=== PATIENT | male | born 1965 | race Caucasian/White ===

== ENCOUNTER 2016-08-20 11:51 | Emergency (ER) | payer OTHER ==
[~2016-08-20] VITALS: Ht 177.8 cm; Wt 100.0 kg
[~2016-08-20 11:51] MED LIST: BUSP5 PO; DIPH1TAB36 PO; FLUO20TA20 PO; LITH300 PO; LURA40 PO; NALT50 PO; QUET200 PO; TAMS0.4C67 PO
[2016-08-20 11:53] VITALS: BP 166/83; PULSE 86; RESP 14; TEMP 97.5; O2SAT 98
[2016-08-20] MEDS ORDERED: LIDOCAINE 1%/EPINEPHrine 1:100,000 SOLN 20 ML VIAL INFIL ONE (13:00)
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
--- NOTE | 2016-08-20 13:02 | PD ---
Physical Exam Date Seen by Provider: Aug 20, 2016 Narrative The PA asked me to see this patient with him regarding a laceration that is over 12 hours old Data Data Last Documented VS Vital Signs Date Time Temp Pulse Resp B/P Pulse Ox O2 Delivery O2 Flow Rate FiO2 08/20/16 11:53 97.5 86 14 166/83 98 Room Air MDM Supervised Visit with CYRUS: Yes Narrative Course I, Dr. Valentin, have reviewed the advance practice practitioner's documentation and am in agreement, met with the patient face to face, made the diagnosis, and the medical decision making was done by me. *My assessment and Findings: The patient has a laceration on the right forearm that is still bleeding briskly. I have advised the PA to go ahead and close the wound. I cleaned the slim since it has been bleeding continuously since the laceration occurred. Disposition: 01 DISCHARGE HOME Condition: Stable Gladis Valentin MD Aug 20, 2016 13:02
[2016-08-20] MEDS ORDERED: PROZ20CA11 PO (13:29)
[2016-08-20] MEDS ORDERED: LITH300T3 PO (13:29)
[2016-08-20] MEDS ORDERED: BUSP15TA PO (13:29)
[2016-08-20] MEDS ORDERED: SERO400T PO (13:29)
[2016-08-20] MEDS ORDERED: LITH300C2 PO (13:29)
[2016-08-20] MEDS ORDERED: LURA80 PO (13:29)
[2016-08-20] MEDS ORDERED: NALT50TA3 PO (13:29)
[2016-08-20] MEDS ORDERED: ALFU10TA3 PO (13:29)
[2016-08-20] MEDS ORDERED: CEPH500T PO (14:35)
== END 2016-08-20 15:23 | disposition home or self-care (01) ==
LOC: NEPB 11:51
DX: S51.811A Laceration without foreign body of right forearm, initial encounter (principal); F20.9 Schizophrenia, unspecified; F31.9 Bipolar disorder, unspecified; I10 Essential (primary) hypertension; E78.00 Pure hypercholesterolemia, unspecified; Z86.59 Personal history of other mental and behavioral disorders; Z87.19 Personal history of other diseases of the digestive system; Z86.69 Personal history of other diseases of the nervous system and sense organs; X78.8XXA Intentional self-harm by other sharp object, initial encounter
CPT/HCPCS: 12001; 96372; 99282; J0690

== ENCOUNTER 2016-09-29 11:12 | Inpatient (IN) | payer MEDICARE, OTHER ==
[~2016-09-29] VITALS: Ht 177.8 cm; Wt 94.6 kg
[~2016-09-29 11:12] MED LIST changes: +ALFU10TA3 PO; +BUSP15TA PO; -BUSP5 PO; +CEPH500T PO; -DIPH1TAB36 PO; -FLUO20TA20 PO; -LITH300 PO; +LITH300C2 PO; +LITH300T3 PO; -LURA40 PO; +LURA80 PO; -NALT50 PO; +NALT50TA3 PO; +PROZ20CA11 PO; -QUET200 PO; +SERO400T PO; -TAMS0.4C67 PO
[2016-09-29 11:29] VITALS: BP 140/87; PULSE 76; RESP 18; TEMP 98.3; O2SAT 98
[2016-09-29] MEDS ORDERED: VITATAB43 PO (11:38)
[2016-09-29] MEDS ORDERED: ANTI2TAB PO (11:38)
[2016-09-29 12:39] VITALS: RESP 18; O2SAT 99
[2016-09-29 13:15] LABS: AUTOMATED NEUTROPHIL # 4.3 TH/MM3 (1.8-7.7); BASOPHIL % 0.1 % (0.0-2.0); EOSINOPHIL % 0.5 % (0.0-4.0); HEMO FLAGS DIFF FINAL; LYMPH % 14.9 % (9.0-44.0); LYMPHOCYTE # 0.8 TH/MM3 (1.0-4.8); MEAN CELL VOLUME 87.8 FL (80.0-100.0); MEAN CORPUSCULAR HGB CONC 35.3 % (32.0-36.0); MONO % 7.9 % (0.0-8.0); NEUT % 76.6 % (16.0-70.0); PLATELET COUNT 161 TH/MM3 (150-450); RED BLOOD COUNT 4.67 MIL/MM3 (4.50-5.90); RED CELL DISTRIBUTION WIDTH 12.9 % (11.6-17.2); WHITE BLOOD COUNT 5.6 TH/MM3 (4.0-11.0)
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
[2016-09-29 13:20] LABS: AMPHETAMINE, URINE NEG (NEG); BARBITURATES, URINE NEG (NEG); COCAINE, URINE NEG (NEG)
[2016-09-29 13:28] LABS: ANION GAP 7 MEQ/L (5-15)
[2016-09-29 13:31] LABS: ALKALINE PHOSPHATASE 62 U/L (45-117); ALT (GPT) 15 U/L (12-78); AST (GOT) 14 U/L (15-37); BICARBONATE 26.7 MEQ/L (21.0-32.0); BLOOD UREA NITROGEN 12 MG/DL (7-18); CHLORIDE 106 MEQ/L (98-107); GLOMERULAR FILTRATION RATE 54 ML/MIN (>89); POTASSIUM 3.7 MEQ/L (3.5-5.1); SODIUM (NA) 140 MEQ/L (136-145); TOTAL BILIRUBIN ADULT 1.3 MG/DL (0.2-1.0)
[2016-09-29 16:20] LABS: BICARBONATE 26.1 MEQ/L (21.0-32.0); POTASSIUM 3.9 MEQ/L (3.5-5.1)
[2016-09-29 22:09] VITALS: BP 129/80; PULSE 75; RESP 18; O2SAT 97
[2016-09-29] MEDS ORDERED: diphenhydrAMINE HCL 50 MG CAP PO PRN (22:45)
[2016-09-29] MEDS ORDERED: BENZTROPINE MESYLATE 2 MG/2 ML VIAL IM PRN (22:45)
[2016-09-29] MEDS ORDERED: MAGNESIUM HYDROXIDE SUSP 30 ML CUP PO PRN (22:45)
[2016-09-29] MEDS ORDERED: diphenhydrAMINE HCL 50 MG/ML VIAL - HS PRN IM (22:45)
[2016-09-29] MEDS ORDERED: hydrOXYzine HCL 50 MG TAB PO PRN (22:45)
[2016-09-29] MEDS ORDERED: BENZTROPINE MESYLATE 1 MG TAB PO PRN (22:45)
[2016-09-29] MEDS ORDERED: LORazepam 1 MG TAB PO PRN (22:45)
[2016-09-29] MEDS ORDERED: LORazepam 2 MG/ML VIAL IM PRN (22:45)
[2016-09-29] MEDS ORDERED: diphenhydrAMINE HCL 50 MG CAP - HS PRN PO (22:45)
[2016-09-29] MEDS ORDERED: diphenhydrAMINE HCL 50 MG/ML VIAL IM PRN (22:45)
[2016-09-29] MEDS ORDERED: ALUMINUM/MAGNESIUM/SIMETH 30 ML CUP PO PRN (22:45)
[2016-09-29] MEDS ORDERED: LOPERAMIDE HCL 2 MG CAP PO PRN (23:00)
[2016-09-30 02:04] VITALS: BP 160/90; PULSE 59; RESP 18; TEMP 98.2; O2SAT 99
[2016-09-30 06:14] VITALS: BP 124/73; PULSE 62; RESP 16; TEMP 98; O2SAT 98
[2016-09-30 08:39] LABS: ANION GAP 6 MEQ/L (5-15); BICARBONATE 28.7 MEQ/L (21.0-32.0); BLOOD UREA NITROGEN 12 MG/DL (7-18); CHLORIDE 106 MEQ/L (98-107); GLOMERULAR FILTRATION RATE 58 ML/MIN (>89); LDL CHOLESTEROL 68 MG/DL (0-99); POTASSIUM 4.1 MEQ/L (3.5-5.1); SODIUM (NA) 141 MEQ/L (136-145)
[2016-09-30] MEDS ORDERED: LURASIDONE 40 MG TAB PO SCH (09:00)
[2016-09-30] MEDS: LITHIUM CARBONATE 300 MG CAP PO SCH (09:00)
[2016-09-30] MEDS: FOLIC ACID 1 MG TAB PO SCH (09:00)
[2016-09-30] MEDS: busPIRone HCL 10 MG TAB PO SCH ×2 (09:00→21:44)
[2016-09-30] MEDS: VITAMIN B COMPLEX/VIT C TAB PO SCH (09:00)
[2016-09-30] MEDS: FLUoxetine HCL 20 MG CAP PO SCH (09:00)
[2016-09-30] MEDS: NALTREXONE HCL 50 MG TAB PO SCH (09:00)
[2016-09-30] MEDS: NICOTINE 21 MG/24 HR PATCH T-DERMAL SCH (09:00)
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
[2016-09-30 16:05] LABS: HEMOGLOBIN A1b 0.8 %; HEMOGLOBIN Ao 88.1 %; HEMOGLOBIN F 0.6 %; HEMOGLOBIN LA1C 1.6 %
[2016-09-30] MEDS: ACETAMINOPHEN 325 MG TAB PO PRN (17:41)
[2016-09-30 18:28] VITALS: BP 135/78; PULSE 64; RESP 16; TEMP 97.6; O2SAT 99
--- NOTE | 2016-09-30 18:45 | EKG ---
Date Performed: 09/29/2016 Time Performed: 15:08:01 PTAGE: 51 years EKG: Sinus rhythm NONSPECIFIC T-WAVE ABNORMALITY BORDERLINE ECG PREVIOUS TRACING : 09/29/2016 12.25 DOCTOR: Mello Anderson Interpretating Date/Time 09/30/2016 18:40:09
--- NOTE | 2016-09-30 18:50 | EKG ---
Date Performed: 09/29/2016 Time Performed: 12:25:48 PTAGE: 51 years EKG: Sinus rhythm NONSPECIFIC T-WAVE ABNORMALITY BORDERLINE ECG PREVIOUS TRACING : 04/07/2016 12.56 DOCTOR: Mello Anderson Interpretating Date/Time 09/30/2016 18:44:33
[2016-09-30] MEDS: REMOVE OLD NICOTINE PATCH T-DERMAL SCH (21:00)
[2016-09-30] MEDS: ALFUZOSIN 10 MG PO SCH (21:00)
[2016-09-30] MEDS: LITHIUM CARBONATE 300 MG TAB PO SCH (21:44)
[2016-09-30] MEDS: QUEtiapine FUMARATE 200 MG TAB PO SCH (21:44)
[2016-10-01 06:17] VITALS: BP 107/59; PULSE 78; RESP 18; TEMP 98; O2SAT 98
[2016-10-01] MEDS: NICOTINE 21 MG/24 HR PATCH T-DERMAL SCH (09:00)
[2016-10-01] MEDS: NALTREXONE HCL 50 MG TAB PO SCH (09:00)
[2016-10-01] MEDS: LITHIUM CARBONATE 300 MG CAP PO SCH (09:00)
[2016-10-01] MEDS: VITAMIN B COMPLEX/VIT C TAB PO SCH (09:00)
[2016-10-01] MEDS: FOLIC ACID 1 MG TAB PO SCH (09:00)
[2016-10-01] MEDS: busPIRone HCL 10 MG TAB PO SCH ×2 (09:00→20:32)
[2016-10-01] MEDS: FLUoxetine HCL 20 MG CAP PO SCH (09:00)
--- NOTE | 2016-10-01 09:00 | HHI.PYPN ---
Subjective Remarks Patient was seen and discussed with the balance staff staker. Patient reported that he has been feeling better he slept better. He is planning to go visit his mom or stepmom in next week and and probably move out of the state and stay with them in [facility]. No behavior or management problem reported. Patient denied any suicidal ideation intentions or plan. He is compliant in taking medication and no side effects were complained. Advised to continue with the same treatment Review of Systems Except as stated in HPI: all other systems reviewed are Neg Psychiatric: COMPLAINS OF: Mood changes, Depression, Delusions Objective Alert: Yes [place]: Person, Place, Situation Mood: Depressed Affect: Restricted Memory Intact: Recent (mildly impaired) Hallucinations: Other (patient denies any active auditory or visual hallucinations at this time) Delusions: Yes Delusion Type: Paranoid Suicidal: Ideation (patient denied any suicidal ideation intentions or plan) Homicidal: Ideation (denies) Insight/Judgement Limited to fair Vitals/IOs Vital Signs Date Time Temp Pulse Resp B/P Pulse Ox O2 Delivery O2 Flow Rate FiO2 10/01/16 06:17 98.0 78 18 107/59 98 09/29/16 22:09 Room Air Assessment & Plan Problem List: (1) Bipolar disorder, most recent episode depressed ICD Code: F31.30 Assessment & Plan Estimated LOS: days Justification for Cont. Inpt. Monitoring of the medication and risk of decompensation Request HC Surrog/Guard Advoc?: Ang Conklin MD Oct 01, 2016 09:00
[2016-10-01] MEDS: QUEtiapine FUMARATE 200 MG TAB PO SCH ×2 (09:30→20:32)
[2016-10-01 19:53] VITALS: BP 97/63; PULSE 69; RESP 16; TEMP 98.2; O2SAT 97
[2016-10-01] MEDS: LITHIUM CARBONATE 300 MG TAB PO SCH (20:32)
[2016-10-01] MEDS: REMOVE OLD NICOTINE PATCH T-DERMAL SCH (20:32)
[2016-10-01] MEDS: ALFUZOSIN 10 MG PO SCH (20:33)
[2016-10-02 05:32] VITALS: BP 109/67; PULSE 67; RESP 18; TEMP 97.2; O2SAT 98
[2016-10-02] MEDS: NICOTINE 21 MG/24 HR PATCH T-DERMAL SCH (09:00)
[2016-10-02] MEDS: QUEtiapine FUMARATE 200 MG TAB PO SCH ×2 (09:07→20:52)
[2016-10-02] MEDS: FOLIC ACID 1 MG TAB PO SCH (09:07)
[2016-10-02] MEDS: busPIRone HCL 10 MG TAB PO SCH ×2 (09:08→20:53)
[2016-10-02] MEDS: FLUoxetine HCL 20 MG CAP PO SCH (09:08)
[2016-10-02] MEDS: NALTREXONE HCL 50 MG TAB PO SCH (09:08)
[2016-10-02] MEDS: VITAMIN B COMPLEX/VIT C TAB PO SCH (09:08)
[2016-10-02] MEDS: LITHIUM CARBONATE 300 MG CAP PO SCH (09:08)
--- NOTE | 2016-10-02 11:07 | HHI.PYPN ---
Subjective Remarks Patient was seen and discussed with the staff appraiser. Patient reported that he has been feeling fine he slept fairly well. No side effects were complained. No behavior or management problem reported. He is compliant in taking medication. Denied any suicidal ideation intentions or plan. He still planning to go and out of state to visit his family and stay there may be. Continue with the same treatment Review of Systems Except as stated in HPI: all other systems reviewed are Neg Psychiatric: COMPLAINS OF: Mood changes, Depression Objective Alert: Yes [place]: Person, Place, Situation Mood: Depressed Affect: Restricted Memory Intact: Recent (mildly impaired) Hallucinations: Other (patient denies any active auditory or visual hallucinations at this time) Delusions: Yes Delusion Type: Paranoid Suicidal: Ideation (patient denied any suicidal ideation intentions or plan) Homicidal: Ideation (denies) Insight/Judgement Fair Vitals/IOs Vital Signs Date Time Temp Pulse Resp B/P Pulse Ox O2 Delivery O2 Flow Rate FiO2 10/02/16 05:32 97.2 67 18 109/67 98 09/29/16 22:09 Room Air Assessment & Plan Problem List: (1) Bipolar disorder, most recent episode depressed ICD Code: F31.30 Assessment & Plan Estimated LOS: days Justification for Cont. Inpt. Fair to limited Request HC Surrog/Guard Advoc?: No Ang Han MD Oct 02, 2016 11:07
[2016-10-02 18:26] VITALS: BP 115/68; PULSE 66; RESP 18; TEMP 97.3; O2SAT 97
[2016-10-02] MEDS: LITHIUM CARBONATE 300 MG TAB PO SCH (20:52)
[2016-10-02] MEDS: ALFUZOSIN 10 MG PO SCH (21:00)
[2016-10-02] MEDS: REMOVE OLD NICOTINE PATCH T-DERMAL SCH (21:00)
[2016-10-02] MEDS: traZODone HCL 50 MG TAB PO PRN (21:47)
[2016-10-03 05:56] VITALS: BP 94/53; PULSE 68; RESP 16; TEMP 97.3; O2SAT 98
[2016-10-03] MEDS: VITAMIN B COMPLEX/VIT C TAB PO SCH (08:47)
[2016-10-03] MEDS: busPIRone HCL 10 MG TAB PO SCH ×3 (08:47→22:27)
[2016-10-03] MEDS: FOLIC ACID 1 MG TAB PO SCH (08:48)
[2016-10-03] MEDS: LITHIUM CARBONATE 300 MG CAP PO SCH (08:48)
[2016-10-03] MEDS: FLUoxetine HCL 20 MG CAP PO SCH (08:49)
[2016-10-03] MEDS: NALTREXONE HCL 50 MG TAB PO SCH (08:49)
[2016-10-03] MEDS: QUEtiapine FUMARATE 200 MG TAB PO SCH ×2 (08:49→21:00)
[2016-10-03] MEDS: NICOTINE 21 MG/24 HR PATCH T-DERMAL SCH (08:50)
--- NOTE | 2016-10-03 14:43 | HHI.PYPN ---
Subjective Remarks Patient was seen and case discussed with nursing. Patient is pleasant and cooperative with exam. He attributes the reason for his admission show not sleeping for 10 days. He said he had an irritable and depressed mood at the time. The poisonous plant he ate was an intentional act. He is bright and cheerful today. Mood has improved. Denies suicidal ideation intent or plan. Compliant with medications. He denies any flashback nightmares or hyperarousal Objective Alert: Yes [place]: Person, Place, Situation Mood: Depressed Affect: Blunted Memory Intact: Recent (mildly impaired) Hallucinations: Other (denies) Delusions: Yes Delusion Type: Paranoid (none) Suicidal: Ideation (patient denied any suicidal ideation intentions or plan) Homicidal: Ideation (denies) Insight/Judgement Poor Vitals/IOs Vital Signs Date Time Temp Pulse Resp B/P Pulse Ox O2 Delivery O2 Flow Rate FiO2 10/03/16 05:56 97.3 68 16 94/53 98 09/29/16 22:09 Room Air Assessment & Plan Problem List: (1) Bipolar disorder, most recent episode depressed ICD Code: F31.30 Assessment & Plan Continue current treatment plan Justification for Cont. Inpt. Patient will decompensate in a less restrictive setting Request HC Surrog/Guard Advoc?: No Jass De La Fuente DO Oct 03, 2016 14:42
[2016-10-03 18:00] VITALS: BP 127/73; PULSE 72; RESP 16; TEMP 98.1
[2016-10-03] MEDS: ACETAMINOPHEN 325 MG TAB PO PRN (18:07)
[2016-10-03] MEDS: LITHIUM CARBONATE 300 MG TAB PO SCH (21:00)
[2016-10-03] MEDS: ALFUZOSIN 10 MG PO SCH (21:00)
[2016-10-03] MEDS: REMOVE OLD NICOTINE PATCH T-DERMAL SCH (21:00)
[2016-10-04 06:24] VITALS: BP 102/64; PULSE 67; RESP 16; TEMP 98; O2SAT 100
[2016-10-04] MEDS: NALTREXONE HCL 50 MG TAB PO SCH (08:57)
[2016-10-04] MEDS: LITHIUM CARBONATE 300 MG CAP PO SCH (08:57)
[2016-10-04] MEDS: VITAMIN B COMPLEX/VIT C TAB PO SCH (08:57)
[2016-10-04] MEDS: FLUoxetine HCL 20 MG CAP PO SCH (08:58)
[2016-10-04] MEDS: QUEtiapine FUMARATE 200 MG TAB PO SCH ×2 (08:58→21:00)
[2016-10-04] MEDS: NICOTINE 21 MG/24 HR PATCH T-DERMAL SCH (08:58)
[2016-10-04] MEDS: FOLIC ACID 1 MG TAB PO SCH (08:58)
--- NOTE | 2016-10-04 13:58 | HHI.PYPN ---
Subjective Remarks Patient was seen and case discussed with nursing. Patient continues to improve. Is bright and pleasant during the interview. Logical and coherent. Sleeping and eating well. Spending his time reading. Denies psychotic symptoms. Objective Alert: Yes [place]: Person, Place, Date, Situation Mood: Calm Affect: Restricted Memory Intact: Recent (mildly impaired) Hallucinations: Other (denies) Delusions: Yes Delusion Type: Paranoid (none) Suicidal: Ideation (patient denied any suicidal ideation intentions or plan) Homicidal: Ideation (denies) Insight/Judgement Improving Vitals/IOs Vital Signs Date Time Temp Pulse Resp B/P Pulse Ox O2 Delivery O2 Flow Rate FiO2 10/04/16 06:24 98.0 67 16 102/64 100 Assessment & Plan Problem List: (1) Bipolar disorder, most recent episode depressed ICD Code: F31.30 Assessment & Plan Continue current treatment plan Justification for Cont. Inpt. Patient will decompensate in a less restrictive setting Request HC Surrog/Guard Advoc?: No Jass De La Fuente DO Oct 04, 2016 13:58
[2016-10-04 17:37] VITALS: BP 117/69; PULSE 69; RESP 18; TEMP 98.6; O2SAT 100
[2016-10-04 20:08] VITALS: BP 117/69; PULSE 69; RESP 16; TEMP 98.6; O2SAT 100
[2016-10-04] MEDS: ALFUZOSIN 10 MG PO SCH (21:00)
[2016-10-04] MEDS: REMOVE OLD NICOTINE PATCH T-DERMAL SCH (21:00)
[2016-10-04] MEDS: busPIRone HCL 10 MG TAB PO SCH (21:00)
[2016-10-04] MEDS: LITHIUM CARBONATE 300 MG TAB PO SCH (21:00)
[2016-10-04] MEDS: ACETAMINOPHEN 325 MG TAB PO PRN (21:47)
[2016-10-04] MEDS: traZODone HCL 50 MG TAB PO PRN (21:48)
[2016-10-05 05:56] VITALS: BP 105/69; PULSE 67; RESP 16; TEMP 98; O2SAT 97
[2016-10-05] MEDS: NALTREXONE HCL 50 MG TAB PO SCH (08:44)
[2016-10-05] MEDS: FLUoxetine HCL 20 MG CAP PO SCH (08:44)
[2016-10-05] MEDS: busPIRone HCL 10 MG TAB PO SCH ×2 (08:44→20:54)
[2016-10-05] MEDS: NICOTINE 21 MG/24 HR PATCH T-DERMAL SCH (08:45)
[2016-10-05] MEDS: VITAMIN B COMPLEX/VIT C TAB PO SCH (08:45)
[2016-10-05] MEDS: LITHIUM CARBONATE 300 MG CAP PO SCH (08:45)
[2016-10-05] MEDS: QUEtiapine FUMARATE 200 MG TAB PO SCH ×2 (08:45→20:54)
[2016-10-05] MEDS: FOLIC ACID 1 MG TAB PO SCH (08:45)
--- NOTE | 2016-10-05 13:47 | HHI.PYPN ---
Subjective Remarks I am assuming care of this patient from Dr. Han. Patient seen and examined with nurse, Virgil. Chart reviewed. Case discussed with nursing staff who reports patient has been no behavioral problem. On my examination today, the patient reports that he is in good spirits. He denies any suicidal or homicidal ideation. He says that he took the oleander prior to admission in an effort to get some sleep, although he admits that if he had as a result, he would not have been distressed at the time. He says that he is sleeping well now and feels generally much improved. He is pleased to be back on Seroquel instead of Latuda. He denies side effects from medications except some mild sedation from the morning dose of Seroquel, which is tolerable, and which he is not interested in changing. Continues to reside in a 3-tent system in [facility] and follows up psychiatrically at the [facility]. Review of Systems Other No physical complaints today Objective Alert: Yes [place]: Person, Place, Date, Situation Mood: Calm Affect: Other (full and reactive) Memory Intact: Comment (intact on clinical exam) Hallucinations: Other (No AVH) Delusions: No Delusion Type: Other (no delusional material) Suicidal: Ideation (denies suicidal ideation) Homicidal: Ideation (denies homicidal ideation) Insight/Judgement Fair Remarks Thought process linear. No motor abnormalities noted. Speech within normal limits for rate, tone and volume. Grooming and hygiene are good. Labs Labs reviewed. No new labs. Vitals/IOs Vital Signs Date Time Temp Pulse Resp B/P Pulse Ox O2 Delivery O2 Flow Rate FiO2 10/05/16 05:56 98.0 67 16 105/69 97 Assessment & Plan Problem List: (1) Bipolar disorder, most recent episode depressed ICD Code: F31.30 Assessment & Plan Patient is pleased with his current psychotropic regimen. Continue psychiatric medications as ordered. I will check a lithium level and a BMP in the morning. Continue other medications and care as ordered. Justification for Cont. Inpt. Monitoring for safety. No evidence of ongoing efforts at self-harm on the inpatient unit. Patient does have a lengthy history of previous self injury/ suicide attempts, and there is likely a fairly significant degree of chronic risk that will not be ameliorated by a lengthy inpatient psychiatric hospital stay. Discharge Planning Anticipate discharge within the next day or 2, and patient agrees that this is appropriate. Request HC Surrog/Guard Advoc?: No Josiah Ontiveros MD Oct 05, 2016 13:47
[2016-10-05 16:36] VITALS: BP 117/68; PULSE 71; RESP 18; TEMP 98.1; O2SAT 97
[2016-10-05] MEDS: REMOVE OLD NICOTINE PATCH T-DERMAL SCH (20:55)
[2016-10-05] MEDS: traZODone HCL 50 MG TAB PO PRN (20:55)
[2016-10-05] MEDS: LITHIUM CARBONATE 300 MG TAB PO SCH (20:55)
[2016-10-05] MEDS: ALFUZOSIN 10 MG PO SCH (21:00)
[2016-10-06 05:31] VITALS: BP 98/66; PULSE 69; RESP 16; TEMP 97.8; O2SAT 98
[2016-10-06 07:36] LABS: BICARBONATE 30.2 MEQ/L (21.0-32.0); POTASSIUM 4.3 MEQ/L (3.5-5.1)
[2016-10-06] MEDS: LITHIUM CARBONATE 300 MG CAP PO SCH (08:17)
[2016-10-06] MEDS: busPIRone HCL 10 MG TAB PO SCH (08:17)
[2016-10-06] MEDS: FOLIC ACID 1 MG TAB PO SCH (08:17)
[2016-10-06] MEDS: VITAMIN B COMPLEX/VIT C TAB PO SCH (08:17)
[2016-10-06] MEDS: NICOTINE 21 MG/24 HR PATCH T-DERMAL SCH (08:18)
[2016-10-06] MEDS: QUEtiapine FUMARATE 200 MG TAB PO SCH (08:18)
[2016-10-06] MEDS: FLUoxetine HCL 20 MG CAP PO SCH (08:18)
[2016-10-06] MEDS: NALTREXONE HCL 50 MG TAB PO SCH (08:18)
[2016-10-06] MEDS ORDERED: QUET1TAB9 PO (14:07)
[2016-10-06] MEDS ORDERED: TRAZ50TA12 PO (14:07)
--- NOTE | 2016-10-06 14:07 | HHI.DS ---
Psychiatry Discharge Summary Inpatient Psychiatric care?: Yes Advance Directive: Yes Mental Health AdvanceDirective: No (CT ) Health Care Proxy: No Admission Admission Date Sep 29, 2016 at 22:53 Admission Diagnosis: (1) Bipolar disorder, most recent episode depressed ICD Code: F31.30 Brief History This is a 51-year-old white male known to this facility for a long time. He comes back under the [place] act because he was not able to sleep for 10 days and his mind was racing and he ate some plan to just to help him sleep he also was frustrated and thought that he would kill himself but at the present time he denies any suicidal ideation intentions or plan. All he wants to do is to get some rest and not have his mind racing. Patient claimed that in the past Seroquel has helped him and is willing to take that. He is also willing to sign voluntary and cooperative with the treatment. No behavior or management problem reported. No side effects were complained. Patient has been hospitalized several times here his family history is positive for depression and some suicide attempt. 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 Tobacco Use In Past 30 Days: No Tobacco Past 30 Days Alcohol Use: Never Hospital Course Patient was admitted to a locked, inpatient psychiatric unit. Appropriate precautions were in place throughout patient's hospital stay. Patient was seen and examined daily on the unit by psychiatry and also visited by counselor. Medications were adjusted. Patient tolerated medications well without side effects. Patient had improvement in his presenting psychiatric symptomatology. In particular, the patient reports that he was able to get some good sleep which was a primary stressor leading to his ingestion. There was no evidence of any ongoing suicidality or homicidality on the inpatient unit. Patient remained in good behavioral control and was compliant with medications. On the day of discharge: Patient seen and examined with counselor. Chart reviewed. Case discussed with counselor and nurse in treatment team. Per nursing staff, no behavioral issues. On my examination today, the patient reports that he feels much improved and is requesting discharge from the inpatient psychiatric unit today. He says that his mood is "8 out of 10" with 10 being perfect. I can elicit no ongoing depressive or hypomanic/manic symptoms. He denies any audiovisual hallucinations and I can elicit no delusional beliefs. He denies any suicidal or homicidal ideation and says that he wants to live to take care of his mothers. I do note that one of his written goals is to do precisely that. Patient denies side effects from medications. He has no physical complaints. Weighing the acute, chronic, and protective factors and based on the available evidence, I fitting room maintenance mechanic a reasonable degree of medical certainty that the patient is at low imminent risk of harm to self or others from mental illness and his level of function is adequate for outpatient care. There is likely a significant chronic risk given his long-term history of self injury and suicidality, but there is no evidence of any acute or imminent risk in this regard. I have discussed the various components of patient's suicide risk assessment with the patient and encouraged him to work with his outpatient providers to further bolster his protective factors. Given that I have no basis to retain this patient involuntarily at this time and given that he is requesting discharge from the inpatient psychiatric unit, I will arrange for his discharge today with psychiatric follow-up as arranged by counselor. Patient is also to follow-up with primary care. I have reminded the patient warning signs for need to return to the psychiatric emergency room is part of the general safety plan. Patient reports that he has an adequate supply of all of his psychotropics except for the trazodone, and I will prescribe for him a small quantity of this on discharge. Results Blood Pressure 98 / 66 Vital Signs Date Time Temp Pulse Resp B/P Pulse Ox O2 Delivery O2 Flow Rate FiO2 10/06/16 05:31 97.8 69 16 98/66 98 Laboratory Tests Test 10/06/16 06:10 Blood Urea Nitrogen 21 MG/DL (7-18) Creatinine 1.36 MG/DL (0.60-1.30) Estimat Glomerular Filtration 55 ML/MIN (>89) Rate Laboratory Results Test 10/06/16 06:10 [place] Level 1.0 MEQ/L (0.5-1.5) Summary of Major Lab Results [place] level within the therapeutic range. GFR stable. Summary of Procedures None done Imaging None done Pending results at discharge: No Medications # of Antipsychotic meds at D/C: 1 Approp Antipsych med options 1 - Minimum of three failed multiple trials of monotherapy. 2 - Documented plan to taper to monotherapy due to previous use of multiple meds OR cross-taper in progress at D/C. 3 - Documentation of augmentation of Clozapine. 4 - Justification other than those listed in allowable values 1-3, document here : Discharge Discharge Date: Oct 06, 2016 Discharge Diagnosis: (1) Bipolar disorder, most recent episode depressed Diagnosis: Principal (stabilized) ICD Code: F31.30 GAF on discharge is 60 Mental Status Exam at Disch Patient is casually dressed. He is well groomed. He is awake and alert and oriented 3. No evidence of delirium. No abnormal motor movements noted. Speech is within normal limits for rate, tone and volume. Language and fund of knowledge average. Mood is reportedly improved versus admission affect is fairly full and reactive. Thought process linear. No loosening of associations. No evident delusional material. Denies any suicidal or homicidal ideation. Insight and judgment are fair. Pt Condition on Discharge: Stable Discharge Disposition: Discharge Home Discharge Instructions Diet Instructions: As Tolerated, No Restrictions Activities you can perform: Weight Bearing as Florentin Scheduled Appointment: CT Appointment Date: Oct 06, 2016 New Medications: Quetiapine (Quetiapine) 200 Mg Tab 200 MG PO DAILY Pt has adequate supply at home. Order is to update med rec only. Mental Health Days 0 Ref 0 TAB Trazodone (Trazodone) 50 Mg Tab 50 MG PO HS PRN INSOMNIA Days 7 Ref 0 TAB Continued Medications: Alfuzosin HCl (Alfuzosin HCl ER) 10 Mg Tab 10 MG PO HS Buspirone (Buspirone) 15 Mg Tab 15 MG PO BID Anxiety Ref 0 TAB Cobalamine Combinations (Vitamin S29-Aqixf Acid) 500-400 Mcg Tab 1 TAB PO DAILY Nutritional Supplement Ref 0 TAB Fluoxetine (Prozac) 20 Mg Cap 20 MG PO DAILY #30 Ref 0 CAP [place] Carbonate ([place] Carbonate) 300 Mg Cap 300 MG PO DAILY IN THE AM Ref 0 CAP [place] Carbonate ([place] Carbonate) 300 Mg Tab 600 MG PO DAILY IN THE PM Ref 0 TAB Loperamide (Anti-Diarrheal) 2 Mg Tab 2 MG PO DIRECTED Take 4 mg after 1st loose stool, then take 2 mg after each subsequent stool. Max 8 mg/day. PRN DIARRHEA Ref 0 TAB Naltrexone (Naltrexone) 50 Mg Tab 50 MG PO DAILY Ref 0 TAB Quetiapine (Seroquel) 400 Mg Tab 400 MG PO HS #30 Ref 0 TAB Discontinued Medications: Lurasidone (Latuda) 80 Mg Tab 40 MG PO DAILY #30 Ref 0 TAB Discharge Time <= 30 minutes Discharge/Advance Care Plan Health Problems: (1) Bipolar disorder, most recent episode depressed Goals to promote your health * To prevent worsening of your condition and complications * To maintain your health at the optimal level Directions to meet your goals Take your medications as prescribed Follow your dietary instruction Follow activity as directed Keep your appointments as scheduled Take your immunizations and boosters as scheduled If your symptoms worsen call your PCP, if no PCP go to Urgent Care Center or Emergency Room For 15/02 questions related to your inpatient stay or results of tests pending at discharge, please contact Dr. Josiah Ontiveros at Smoking is Dangerous to Your Health. Avoid second hand smoking Josiah Ontiveros MD Oct 06, 2016 14:07
== END 2016-10-06 15:10 | disposition home or self-care (01) | DRG 885 ==
LOC: NEPC 11:12 → NEDA 22:53 → H260 09-30 01:01
PROVIDERS: ADMIT Psychiatry & Neurology Psychiatry; ATTEND Psychiatry & Neurology Psychiatry
DX: F31.4 Bipolar disorder, current episode depressed, severe, without psychotic features (principal); R45.851 Suicidal ideations; K21.9 Gastro-esophageal reflux disease without esophagitis; R19.7 Diarrhea, unspecified; F41.9 Anxiety disorder, unspecified
CPT/HCPCS: 80048; 80053; 80061; 80162; 80178; 80307; 82607; 83036; 85025; 93005; Q0163